=== PATIENT | female | born 1985 | race Caucasian/White ===

== ENCOUNTER → 2016-09-22 | Outpatient (CLI) | payer BC ==
--- NOTE | 2016-09-22 22:33 | PN ---
This patient is 31 with a diagnosis of severe symptomatic obstructive sleep apnea. She had a home sleep study and the patient was found to have an apnea-hypopnea index of 76. The patient was given O2 CPAP therapy and currently settings at minimum pressure of 4 and maximum pressure of 20. The patient felt that she was started using CPAP and after a few days of using it, she had a respiratory tract infection which was quite severe and this prevented her from ongoing use. In addition, she had a in the family and based on that, the compliance data that was reported today has been poor. Nevertheless, she has seen significant benefit from CPAP therapy and she is committed to treatment. I checked her compliance data. The patient's P90 pressure is 6.2. Her leak factor is only at 4 liters; however, CPAP use for more than 4 hours is 3 out of 30 and her average CPAP use 2.1 hours. This is not acceptable and this data will be need to be further improved. BP is 135/80, pulse 100, respirations 16, temperature 98.1, saturation 98% on room air. Weight is 232. GENERAL APPEARANCE: Calm, comfortable. HEENT: Negative for JVD. There is no goiter or neck mass. LUNGS: Diminished breath sounds, otherwise clear. HEART: Sounds are regular rate and rhythm. Normal S1/S2. No S3, No murmurs. ABDOMEN: Soft, nontender. No organomegaly. EXTREMITIES: No edema. No cyanosis, or clubbing. IMPRESSION: Severe symptomatic obstructive sleep apnea with an AHI of 76. The patient's compliance data is poor and this data needs to be improved and the compliancy needs to be further enforced. PLAN: 1. The patient will be asked to use her CPAP more regularly especially that upper respiratory tract infection symptoms have resolved. 2. We will keep the same CPAP pressure settings. 3. See me back in 6 weeks' time for re-evaluation. 4. I think she is committed and she will end up using her CPAP machine on a regular basis. 5. We will continue to follow and make further recommendations accordingly.
== END | disposition home or self-care (01) ==
DX: G47.33 Obstructive sleep apnea (adult) (pediatric) (principal)

== ENCOUNTER → 2016-12-22 | Outpatient (CLI) | payer BC ==
--- NOTE | 2016-12-23 08:17 | PN ---
I am seeing this patient in followup regarding her obstructive sleep apnea. The patient is coming in for a compliancy check. The patient was diagnosed having severe LILLY with an AHI of 76 and she is currently being treated with auto CPAP with a minimum pressure of 4 and maximum pressure of 20. On today's evaluation, the patient's compliance has improved. Her CPAP use for more than 4 hours is 11/30. Her leak factor is 5, her AHI is down to 0.4 while on treatment, and her average CPAP use is around 4.2 hours per night. The patient is currently . 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 She is quite busy and she cannot sleep more than 5 hours per night. I noted that her EPR was off and her ( ) level was also off. She is happy with the treatment, she is ( ) from the treatment. She wants to sleep longer hours if she can. She seems to be much more alert and awake during the day, more refreshed. BP is 128/68, pulse 91, respirations 18, temperature 98.1, saturation 99% on room air. Weight 236. Filley score is 6. BMI is 36.4. GENERAL APPEARANCE: Calm, comfortable. HEENT: Mallampati class IV. There is no goiter or neck masses. LUNGS: Clear to palpation. HEART: Sounds are regular rate and rhythm. Normal S1, S2. ABDOMEN: Soft, nontender. No organomegaly. EXTREMITIES: No edema. No cyanosis or clubbing. IMPRESSION: 1. Severe symptomatic obstructive sleep apnea with an apnea-hypopnea index of 76; currently on Auto CPAP unit with a minimum pressure of 4, maximum pressure of 20 with improving compliance and improvement with clinical response. 2. Insufficient sleep syndrome. 3. Obesity. PLAN: 1. Extend sleep hours to an average of 6 to 7 hours per night, if possible. 2. Continue CPAP therapy at the same level of pressure. 3. Activate APR at the level of 3. 4. Activate humidity at the level of 3. 5. Continue the same interface and see me back in a year's time, earlier if needed.
== END | disposition home or self-care (01) ==
LOC: SLEEP 16:30
PROVIDERS: ATTEND Internal Medicine Critical Care Medicine
DX: G47.33 Obstructive sleep apnea (adult) (pediatric) (principal); F51.12 Insufficient sleep syndrome; E66.9 Obesity, unspecified; Z68.36 Body mass index [BMI] 36.0-36.9, adult; Z33.1 Pregnant state, incidental

== ENCOUNTER 2017-04-26 10:51 | Outpatient (CLI) | payer BC ==
[2017-04-26 11:37] LABS: Appearance,Urine Cloudy (Clear); Bilirubin,Urine Negative (Negative); Glucose,Urine (UA) Negative (Negative); Ketones,Urine Negative (Negative); Leukocyte Esterase,Urine Negative (Negative); Mucus,Urine Moderate /hpf; Nitrite,Urine Negative (Negative); Particle Count 10822; Protein,Urine 1+ (Negative); RBC,Urine 1 /hpf (0-5); Specific Gravity,Urine 1.018 (1.001-1.035); Squamous Epithelial Cell,Urine 2 /hpf (0-4); UA Billing (MACRO vs. MICRO) MICRO; Urobilinogen,Urine <2.0 mg/dL (<2.0); WBC,Urine 6 /hpf (0-5)
[2017-04-26 13:05] VITALS: BP 140/81; PULSE 105; RESP 18; TEMP 96.6
--- NOTE | 2017-05-07 11:20 | P.MSEPDOC ---
Presenting Problems - Arrival Data Date of Arrival on Unit: 04/26/17 Time of Arrival on Unit: 10:51 Mode of Transport: Ambulatory - Complaint OB-Reason for Admission/Chief Complaint: Acute Nausea/Vomiting, Other Comment: Diarrhea x 2 days Medical History - Information : 2 Para: 2 Term: 0 : 2 Abortions: Spontaneous or Elective: 0 Number of Living Children: 2 - Gestational Age Expected Date of Delivery: 08/25/17 Gestational Age by BOB (wks/days): 24 Weeks and 2 Days Review of Systems - Review of Systems Constitutional: No problems Breast: No problems ENT: No problems Cardiovascular: No problems Respiratory: No problems Gastrointestinal: Diarrhea Genitourinary: No problems Musculoskeletal: No problems Neurological: No problems Skin: No problems Vital Signs - Temperature Temperature: 96.6 F Temperature Source: Temporal Artery Scan - Pulse Right Sitting Brachial Pulse Rate: 105 Pulse Assessment Method: Automatic Cuff - Respirations Respiratory Rate: 18 Oxygen Delivery Method: Room Air O2 Sat by Pulse Oximetry: 99 - Blood Pressure Right Arm Sitting Blood Pressure: 140/81 Blood Pressure Mean: 100 Blood Pressure Source: Automatic Cuff Medical Screen Scoring (Pre) - Cervical Exam Dilation: Exam Deferred Effacement: Exam Deferred Membranes: Intact - Uterine Contractions Frequency: N/A Duration: N/A Intensity: N/A - Maternal Vital Signs Maternal Temperature: N/A Maternal Blood Pressure: N/A Signs of Preeclampsia: N/A Maternal Respirations: N/A - Maternal Trauma Maternal Trauma: N/A - Assessment Baseline FHR: 150 Heart Rate - NICHD Category: Category I (Normal) = 0 Station: N/A - Total Score Total Score (Pre): 0 - Level of Risk Level of Risk: Low (0-5) Physician Notification (Pre) - Physician Notified Physician Notified Date: 04/26/17 Physician Notified Time: 11:45 Physician/Practitioner Notifed:: Emely Spoke With: Emely New Order Received: Yes - Notification Comment Comment: UA results provided, d/c home, to take imodium OTC per OTC directions, BRAT diet. Pt has appt . Disposition - Disposition OB Disposition: Discharge to home, Written follow up instructions reviewed Discharge Date: 04/26/17 Discharge Time: 11:59 I agree with the RN Medical Screening Exam: No Physician's MSE Comment: Stated gestational age at the time of presentation is inaccurate. The remainder of the MSE is accurate. Risk & Benefit of care provided described in d/c instruction: Yes Diagnosis: RELATED CONDITIONS, UNSPECIFIED, SECOND TRIMESTER
== END 2017-04-26 11:58 | disposition home or self-care (01) ==
LOC: FBPOP 10:51
PROVIDERS: ATTEND Obstetrics & Gynecology
DX: O26.92 Pregnancy related conditions, unspecified, second trimester (principal); Z3A.24 24 weeks gestation of pregnancy
CPT/HCPCS: 81001; 99213

== ENCOUNTER 2017-05-14 10:46 | Outpatient (CLI) | payer BC ==
[2017-05-14 11:14] VITALS: RESP 16; TEMP 97.2
[2017-05-14 11:16] LABS: Appearance,Urine Clear (Clear); Bilirubin,Urine Negative (Negative); Glucose,Urine (UA) Negative (Negative); Ketones,Urine Negative (Negative); Leukocyte Esterase,Urine Negative (Negative); Nitrite,Urine Negative (Negative); Protein,Urine Trace (Negative); UA Billing (MACRO vs. MICRO) CHEM; Urobilinogen,Urine <2.0 mg/dL (<2.0)
[2017-05-14] MEDS ORDERED: ONDANSETRON 4 MG/2 ML VIAL IVP STA (11:16)
[2017-05-14] MEDS: LACTATED RINGERS 1,000 ML IV SCH ×2 (11:53→12:52)
[2017-05-14 12:14] LABS: ALT 23 U/L (9-52); AST 14 U/L (14-36); Alkaline Phosphatase 83 U/L (38-126); Anion Gap 13 mmol/L; Anisocytosis Slight; Aty Lym Flag Slight; Blood Urea Nitrogen 6 mg/dL (7-17); CH 24.6; CHCM 32.1; Calcium 8.8 mg/dL (8.4-10.2); Carbon Dioxide 19 mmol/L (22-30); Chloride 107 mmol/L (98-107); Glucose 68 mg/dL (74-99); HCT 32.6 % (34.0-46.0); HDW 3.28; HGB 10.7 gm/dL (11.4-16.0); Hypochromasia Slight; LDH 345 U/L (313-618); MCH 25.2 pg (25.0-35.0); MCHC 32.8 g/dL (31.0-37.0); MCV 76.9 fL (80.0-100.0); Mean Platelet Volume 6.9; Microcytosis Slight; Non-African American GFR(MDRD) >60 (>60 ml/min/1.73 sqM); RBC 4.24 m/uL (3.80-5.40); RDW 16.4 % (11.5-15.5); Sodium 139 mmol/L (137-145); Total Bilirubin 0.3 mg/dL (0.2-1.3); Total Protein 6.5 g/dL (6.3-8.2); Uric Acid 3.5 mg/dL (3.7-7.4); WBC 8.6 k/uL (3.8-10.6); WBC (Perox) 8.43
[2017-05-14 12:45] LABS: Add Differential Manual Differential
[2017-05-14 12:47] LABS: Manual Review Performed; Nucleated Red Blood Cells 0 /100 WBC (0-0); Total Cells Counted 100
[2017-05-14 13:17] VITALS: BP 109/63; PULSE 85
--- NOTE | 2017-06-20 21:39 | P.MSEPDOC ---
Presenting Problems - Arrival Data Date of Arrival on Unit: 05/14/17 Time of Arrival on Unit: 10:41 Mode of Transport: Ambulatory - Complaint OB-Reason for Admission/Chief Complaint: Acute Nausea/Vomiting, Headache Comment: pt states vomiting and diahrrea for the past week that has continued without resloving and now feels contractions Medical History - Information : 2 Para: 2 Term: 2 : 0 Abortions: Spontaneous or Elective: 0 Number of Living Children: 2 - Gestational Age Gestational Age by BOB (wks/days): 25 Weeks and 2 Days - History Complications: Prior Review of Systems - Review of Systems Constitutional: No problems Breast: No problems ENT: No problems Cardiovascular: No problems Respiratory: No problems Gastrointestinal: Diarrhea Genitourinary: No problems Musculoskeletal: No problems Neurological: Dizziness Skin: No problems Vital Signs - Temperature Temperature: 97.2 F Temperature Source: Temporal Artery Scan - Pulse Right Brachial Pulse Rate: 85 Pulse Assessment Method: Automatic Cuff - Respirations Respiratory Rate: 16 - Blood Pressure Right Arm Blood Pressure: 109/63 Blood Pressure Mean: 78 Blood Pressure Source: Automatic Cuff Medical Screen Scoring (Pre) - Uterine Contractions Frequency: N/A Duration: N/A Intensity: N/A - Maternal Vital Signs Maternal Temperature: N/A Maternal Blood Pressure: Systolic >139 = 2 Signs of Preeclampsia: Headache = 1, Nausea/Vomiting = 1 Maternal Respirations: N/A - Maternal Trauma Maternal Trauma: N/A - Assessment Baseline FHR: 158 Heart Rate - NICHD Category: Category I (Normal) = 0 - Total Score Total Score (Pre): 4 - Level of Risk Level of Risk: Low (0-5) Physician Notification (Pre) - Physician Notified Physician/Practitioner Notifed:: Dr. Jones Spoke With: Dr. Jones New Order Received: Yes (pih labs, iv hydrate, zofran) - Notification Comment Comment: report given orders received Medical Screen Scoring (Post) - Cervical Exam Dilation: Exam Deferred Effacement: Exam Deferred Membranes: Intact - Uterine Contractions Frequency: N/A Duration: N/A Intensity: N/A - Maternal Vital Signs Maternal Temperature: N/A Maternal Blood Pressure: N/A Signs of Preeclampsia: N/A Maternal Respirations: N/A - Maternal Trauma Maternal Trauma: N/A - Assessment Heart Rate: 150 Heart Rate - NICHD Category: Category I (Normal) = 0 NST: Reactive Position: N/A Station: N/A - Total Score Total Score (Post): 0 - Post Treatment Level of Risk Post Treatment Level of Risk: Low (0-5) Physician Notification (Post) - Physician Notified Physician Notified Date: 05/14/17 Physician Notified Time: 13:00 Physician/Practitioner Notified:: Dr Jones New Order Received: Yes Disposition - Disposition OB Disposition: Discharge to home, Written follow up instructions reviewed Discharge Date: 05/14/17 Discharge Time: 13:10 I agree with the RN Medical Screening Exam: No Physician's MSE Comment: incomplete documentation Risk & Benefit of care provided described in d/c instruction: No Diagnosis: VOMITING OF , UNSPECIFIED
== END 2017-05-14 13:10 | disposition home or self-care (01) ==
LOC: FBPOP 10:46
PROVIDERS: ATTEND Obstetrics & Gynecology
DX: O21.9 Vomiting of pregnancy, unspecified (principal); Z3A.25 25 weeks gestation of pregnancy
CPT/HCPCS: 99215; 96360; 96375; 80053; 83615; 84550; 85025; 81003; J2405; 96361; 96365

== ENCOUNTER 2017-05-20 16:57 | Outpatient (CLI) | payer BC ==
[2017-05-20 18:43] VITALS: BP 125/75; PULSE 100; RESP 18; TEMP 98.1
--- NOTE | 2017-06-02 16:14 | P.MSEPDOC ---
Presenting Problems - Arrival Data Date of Arrival on Unit: 05/20/17 Time of Arrival on Unit: 16:57 Mode of Transport: Ambulatory - Complaint Comment: Pt here for elevated blood pressures, episode of dizziness, headache and seeing spots at work today. Patients blood pressures while in TR all WNL while monitored over an hour. Discharged with instructions to monitor blood pressures at home and bring list of BPs with her to Dr Han at her next office visit. Medical History - Information : 3 Para: 1 Term: 0 : 1 Abortions: Spontaneous or Elective: 1 Number of Living Children: 2 - Gestational Age Gestational Age by BOB (wks/days): 26 Weeks and 1 Days - History Comment: History of PIH with last Review of Systems - Review of Systems Constitutional: No problems Breast: No problems ENT: No problems Cardiovascular: No problems Respiratory: No problems Gastrointestinal: No problems Genitourinary: No problems Musculoskeletal: No problems Neurological: Dizziness Skin: No problems Comment: no dizziness at this time. Vital Signs - Temperature Temperature: 98.1 F Temperature Source: Oral - Pulse Right Pulse Rate: 100 Pulse Assessment Method: Pulse Oximetry - Respirations Respiratory Rate: 18 Oxygen Delivery Method: Room Air O2 Sat by Pulse Oximetry: 98 - Blood Pressure Right Arm Blood Pressure: 125/75 Blood Pressure Mean: 91 Blood Pressure Source: Automatic Cuff Medical Screen Scoring (Pre) - Cervical Exam Dilation: Exam Deferred Effacement: Exam Deferred Membranes: Intact - Uterine Contractions Frequency: N/A Duration: N/A Intensity: N/A - Maternal Vital Signs Maternal Temperature: N/A Maternal Blood Pressure: N/A Signs of Preeclampsia: N/A Maternal Respirations: N/A - Maternal Trauma Maternal Trauma: N/A - Assessment Baseline FHR: 145 Heart Rate - NICHD Category: Category I (Normal) = 0 Position: N/A Station: N/A - Total Score Total Score (Pre): 0 - Level of Risk Level of Risk: Low (0-5) Physician Notification (Pre) - Physician Notified Physician Notified Date: 05/20/17 Physician Notified Time: 17:37 Physician/Practitioner Notifed:: Dr Jones Spoke With: Telephone New Order Received: Yes Disposition - Disposition OB Disposition: Discharge to home Discharge Date: 05/20/17 Discharge Time: 18:35 I agree with the RN Medical Screening Exam: Yes Risk & Benefit of care provided described in d/c instruction: Yes Diagnosis: 26 WEEKS GESTATION OF
== END 2017-05-20 18:35 | disposition home or self-care (01) ==
LOC: FBPOP 16:57
PROVIDERS: ATTEND Obstetrics & Gynecology
DX: O99.89 Other specified diseases and conditions complicating pregnancy, childbirth and the puerperium (principal); R03.0 Elevated blood-pressure reading, without diagnosis of hypertension; Z3A.26 26 weeks gestation of pregnancy
CPT/HCPCS: 99213

== ENCOUNTER → 2020-09-27 | Outpatient (CLI) | payer BC ==
[2020-09-28 01:30] LABS: Codfish IgE 2.92 kU/L; Shrimp IgE <0.10 kU/L
== END | disposition home or self-care (01) ==
LOC: LABWHC1 16:16
PROVIDERS: ATTEND Otolaryngology
DX: L50.0 Allergic urticaria (principal)
CPT/HCPCS: 36415; 86003

== ENCOUNTER → 2023-12-28 | Outpatient (CLI) | payer OTHER ==
--- NOTE | 2023-12-29 09:46 | MM ---
Reason for Exam: Screening (asymptomatic). Baseline mammogram. Patient History: Menarche at age 10. First Full-Term at age 28. Late child-bearing (after 28). Currently using Hormonal Contraceptives, starting at age 38. Last menstrual period: 11/29/2023 Risk Values: Carolyn 5 year model risk: 0.8%. NCI Lifetime model risk: 13.6%. Prior Study Comparison: Patient's first Mammogram. Tissue Density: The breasts are heterogeneously dense, which may obscure small masses. Findings: Analyzed By CAD. There is no suspicious group of microcalcifications or new suspicious mass in either breast. Benign calcifications left breast. Overall Assessment: Benign, BI-RAD 2 Management: Screening Mammogram of both breasts in 1 year. . Patient should continue monthly self-breast exams. A clinical breast exam by your physician is recommended on an annual basis. This exam should not preclude additional follow-up of suspicious palpable abnormalities. Note on Carolyn scores and lifetime risk: 1. A Carolyn score greater than 3% is considered moderate risk. If this is the case, consider specialist referral to assess eligibility for a risk reducing agent. 2. If overall lifetime risk for the development of breast cancer is 20% or higher, the patient may qualify for future screening with alternating mammogram and breast MRI. Electronically signed and approved by: Vickey Singleton M.D. Radiologis
== END | disposition home or self-care (01) ==
LOC: RADMAMWWP 15:00
PROVIDERS: ATTEND Obstetrics & Gynecology
DX: Z12.31 Encounter for screening mammogram for malignant neoplasm of breast (principal)
CPT/HCPCS: 77063; 77067